=== PATIENT | male | born 1995 | race Hispanic/Latino ===

== ENCOUNTER 2018-12-27 09:14 | Emergency (ER) | payer OTHER ==
[2018-12-27] MEDS ORDERED: Ketorolac Tromethamine 60 MG/2 ML VIAL ONE (10:25)
[2018-12-27] MEDS ORDERED: Dexamethasone 10 MG/ML VIAL ONE (10:25)
[2018-12-27] MEDS ORDERED: Acetaminophen 500 MG TAB ONE (10:25)
--- NOTE | 2018-12-27 10:27 | RAD ---
XR Lumbar Spine 2 Or 3 View HISTORY: Right lower back pain COMPARISON: None. FINDINGS: The vertebral bodies are normal in height. Disc spaces appear well preserved. No evidence o f spondylolysis or spondylolysis. Pedicles are intact. IMPRESSION: Unremarkable exam.
== END 2018-12-27 11:00 | disposition home or self-care (01) ==
LOC: ERS 09:14
DX: M54.5 Low back pain (principal)
CPT/HCPCS: 72100; 96372; J1100; J1885